=== PATIENT | female | born 1965 | race Caucasian/White ===

== ENCOUNTER → 2017-07-20 | Day surgery (SDC) | payer BC ==
[~2017-07-20] MED LIST: Bupivacaine/Epinephrine 0.25% 30 ML VIAL ONE; Fentanyl 100 MCG/2 ML VIAL ONE; ISOVUE-370 76%-LOCM 1 ML ONE; Ketorolac Tromethamine 30 MG/ML VIAL ONE; Lidocaine 1% PF 5 ML VIAL ONE; Meropenem 1 GM in Sodium Chloride 0.9% 100 ML IVPB SCH; Midazolam HCl 2 mg/2 ml Vial ONE; Morphine 4 MG/ML VIAL ONE; Ondansetron HCl/PF 4 MG/2 ML Vial ONE; Propofol 200 MG/20 ML VIAL ONE; Scopolamine 1.5 mg/72 hour Patch ONE; Succinylcholine Chloride 20 MG/ML 10 ml SYRINGE FS ONE
[2017-07-20 11:31] LABS: Bilirubin Negative (Negative); Blood, Urine Moderate (Negative); Glucose, Urine (Dipstick) Negative (Negative); Ketone, Urine Trace mg/dL (Negative); Nitrite Negative (Negative); Protein, Urine (Dipstick) Negative (Neg-Trace); Urobilinogen 0.2 mg/dL (0.2-1.0)
[2017-07-20 11:32] LABS: Bacteria/HPF Rare-Few HPF (None Seen); Hyaline Casts/LPF 0-3 HYALINE CAST LPF (0-3 Hyaline); Squamous Epithelial 0-3 HPF (0-3); WBC/HPF 0-3 HPF (0-3)
[2017-07-20 11:45] LABS: #Basophils 0.1 thou/uL (0.0-0.2); #Eosinphils 0.1 thou/uL (0.0-0.7); #Lymphocytes 2.5 thou/uL (1.20-3.40); #Monocytes 1.4 thou/uL (0.11-0.59); #Neutrophils 12.3 thou/uL (1.40-6.50); %Basophils 0.5 % (0.0-1.0); %Eosinophils 0.4 % (0.0-10.0); %Lymphocytes 15.2 % (21.0-51.0); %Monocytes 8.5 % (0.0-10.0); Hematocrit 43.8 % (36.0-47.0); Mean Platelet Volume 7.7 fL (7.4-10.4); Red Blood Cell (RBC) Count 4.55 mill/uL (4.20-5.40); White Blood Cell (WBC) Count 16.3 thou/uL (4.8-10.8)
[2017-07-20 12:13] LABS: ALT (SGPT) 19 U/L (8-55); AST (SGOT) 14 U/L (5-34); Alkaline Phosphatase 61 U/L (40-150); Anion Gap 14 mmol/L (10-20); BUN (Urea Nitrogen) 10 mg/dL (9.8-20.1); Bilirubin, Total 1.7 mg/dL (0.2-1.2); Calc. Creatinine Clearance 0 mL/min (70-130); Calcium 9.6 mg/dL (7.8-10.44); Carbon Dioxide 23 mmol/L (22-29); Chloride 102 mmol/L (98-107); Estimated GFR-MDRD 78; Globulin 3.1 g/dL (2.4-3.5); Lipase 6 U/L (8-78); Protein, Total 7.5 g/dL (6.0-8.3)
--- NOTE | 2017-07-20 15:16 | HP ---
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 She subsequently suffered na usea, vomiting, and increased pain with movement. She presented in the emergency room. CAT scan rev ealed changes consistent with appendicitis. White count was 16, hemoglobin 14. Basic metabolic prof ile unremarkable. Urine test negative. Urinalysis unremarkable. ALLERGIES: None. SOCIAL HISTORY: Tobacco: One-half or less pack a day. Alcohol: Occasional wine. MEDICATIONS: None routinely. PAST SURGICAL HISTORY: Noncontributory. PAST MEDICAL HISTORY: Noncontributory. REVIEW OF SYSTEMS: Ten point noncontributory. PHYSICAL EXAMINATION: VITAL SIGNS: Blood pressure 130/84, pulse 81, respirations 18, temperature 98.4 degrees, weight 86 k ilograms. HEAD, EARS, EYES, NOSE AND THROAT: Unremarkable. LUNGS: Clear to auscultation. CARDIAC: Regular rate and rhythm without murmur or gallop. ABDOMEN: Soft, tenderness in right lower quadrant with guarding and rebound. EXTREMITIES: Unremarkable. ASSESSMENT AND PLAN: 1. Acute appendicitis. Recommend laparoscopic video appendectomy. Risk of infection, bleeding, vis ceral injury explained. Possible open procedure explained. She consents. 2. Tobacco abuse.
--- NOTE | 2017-07-20 16:34 | CT ---
CT ABDOMEN AND PELVIS WITH IV CONTRAST 07/20/17 HISTORY: Right lower quadrant abdominal pain which started last night with associated nausea. COMPARISON: None available. FINDINGS: There is minimal dependent bibasilar atelectasis. There are bilateral adrenal nodules measuring 1.8 cm on the left and 2.1 cm on the right which cannot be further characterized on this postcontrast exam. There is a subcentimeter too small to characterize hypodense lesion inferior pole right kidney statis tically most likely representing a cyst. The liver, spleen, pancreas, left kidney, and incompletely distended urinary bladder demonstrate a no rmal CT appearance. The uterus is enlarged with large partially calcified masses within the uterus, largest exophytic mas s at the anterior fundus of the uterus measuring approximately 7.5 cm in maximal dimensions. There is also a low density lesion seen in the posterior aspect of the uterus also probably related to a smal l uterine fibroid. The appendix is dilated measuring 1.3 cm in diameter with thickening of the [place]cf[place] and adjacent periappendiceal inflammatory changes suggesting appendicitis. No free intraperitoneal ga s or fluid collection is seen. Small bowel is normal in caliber. Abdominal aorta has a normal CT appearance. IMPRESSION: 1. Acute appendicitis. 2. Bilateral adrenal nodules. Followup CT scan of the abdomen following the adrenal mass protoco l is recommended for further characterization. 3. Uterine fibroids with largest uterine fibroids demonstrating calcification. 4. Above findings discussed with Tete nurse in the Emergency Department on 07/20/17 at 1244 h ours. POS: MYRA
--- NOTE | 2017-07-20 18:11 | OP ---
DATE OF OPERATION: 07/20/2017 PREOPERATIVE DIAGNOSIS: Acute appendicitis. POSTOPERATIVE DIAGNOSIS: Acute appendicitis. PROCEDURE: Laparoscopic video appendectomy. SURGEON: Dr. Rickey Cruz. ANESTHESIA: General. Local 0.25% Marcaine with epinephrine, 30 mL DESCRIPTION OF PROCEDURE: Patient was taken to the operating room where under general anesthesia, ab abreu was prepared with ChloraPrep, draped in routine fashion. Louise catheter placed at the beginnin g of the procedure and removed at the end. Local anesthetic infiltrated into skin and subcutaneous t issue about each port site. Infraumbilical incision made and pneumoperitoneum to 15 mmHg obtained wi th the Veress needle, replacing it with a 5 port. Video laparoscope inserted. Right lateral subcost al incision made and a 5 port placed. Suprapubic incision made and a 12 port placed. Appendix was a cutely inflamed. Mesoappendix taken down with LigaSure. The stump of the appendix divided with Endo blue load LEILANI stapler. Stapled cecal stump was hemostatic and secure as the appendix was removed an d submitted to Pathology. Good hemostasis ensured. Patient had a large left uterine fibroid. Pictu res were taken of the appendix and fibroid. Irrigant and pneumoperitoneum evacuated after suprapubic fascia approximated with 0 Vicryl suture using a GraNee needle. All instruments removed and all ski n incisions approximated with interrupted subdermal 4-0 Monocryl and DermaGlue applied.
== END ==
LOC: ERS 11:04 → SDC 14:15
PROVIDERS: ATTEND Specialist
PROC: 0DTJ4ZZ Resection of Appendix, Percutaneous Endoscopic Approach (ICD-10-PCS; principal; 2017-07-20)
DX: K35.3 Acute appendicitis with localized peritonitis (principal); F17.210 Nicotine dependence, cigarettes, uncomplicated
CPT/HCPCS: 36415; 74177; 80053; 81003; 81015; 81025; 83690; 85025; 88304; 93005; 96361; 96365; 96375; 96376; J0131; J1885; J2001; J2185; J2250; J2270; J2405; J2704; J3010; J7050

== ENCOUNTER 2017-08-21 08:00 | Outpatient (CLI) | payer BC | END 2017-08-21 08:01 | disposition home or self-care (01) | LOC: BICMAMMO 08:00 | PROVIDERS: ATTEND Obstetrics & Gynecology | DX: Z12.31 Encounter for screening mammogram for malignant neoplasm of breast (principal) | CPT/HCPCS: 77063; 77067; G0202 ==

== ENCOUNTER 2018-09-23 13:31 | Outpatient (CLI) | payer BC | END 2018-09-23 13:32 | disposition home or self-care (01) | LOC: BICMAMMO 13:31 | PROVIDERS: ATTEND Obstetrics & Gynecology | DX: Z12.31 Encounter for screening mammogram for malignant neoplasm of breast (principal); Z80.3 Family history of malignant neoplasm of breast | CPT/HCPCS: 77063; 77067 ==

== ENCOUNTER 2020-09-23 14:00 | Outpatient (CLI) | payer BC | END 2020-09-23 14:01 | disposition home or self-care (01) | LOC: BICMAMMO 14:00 | PROVIDERS: ATTEND Obstetrics & Gynecology | DX: Z13.820 Encounter for screening for osteoporosis (principal) | CPT/HCPCS: 77080 ==

== ENCOUNTER 2022-08-29 12:37 | Outpatient (CLI) | payer BC | END 2022-08-29 12:38 | disposition home or self-care (01) | LOC: BICMAMMO 12:37 | PROVIDERS: ATTEND Pathology Anatomic Pathology & Clinical Pathology | DX: Z12.31 Encounter for screening mammogram for malignant neoplasm of breast (principal) | CPT/HCPCS: 77063; 77067 ==

== ENCOUNTER 2024-01-31 13:59 | Outpatient (CLI) | payer OTHER | END 2024-01-31 14:00 | disposition home or self-care (01) | LOC: BICMAMMO 13:59 | PROVIDERS: ATTEND Obstetrics & Gynecology | DX: Z12.31 Encounter for screening mammogram for malignant neoplasm of breast (principal); N63.24 Unspecified lump in the left breast, lower inner quadrant; Z80.3 Family history of malignant neoplasm of breast | CPT/HCPCS: 77063; 77067 ==

== ENCOUNTER 2024-02-07 10:58 | Outpatient (CLI) | payer OTHER | END 2024-02-07 10:59 | disposition home or self-care (01) | LOC: BICULT 10:58 | PROVIDERS: ATTEND Family Medicine | DX: N63.23 Unspecified lump in the left breast, lower outer quadrant (principal) ==

== ENCOUNTER 2024-08-10 07:57 | Outpatient (CLI) | payer OTHER | END 2024-08-10 07:58 | disposition home or self-care (01) | LOC: BICMAMMO 07:57 | PROVIDERS: ATTEND Obstetrics & Gynecology | DX: R92.8 Other abnormal and inconclusive findings on diagnostic imaging of breast (principal); N63.20 Unspecified lump in the left breast, unspecified quadrant | CPT/HCPCS: G0279 ==